=== PATIENT | male | born 1945 | race Caucasian/White ===

== ENCOUNTER 2022-08-27 18:54 | Emergency (ER) | payer MEDICARE, SELFPAY ==
--- NOTE | 2022-08-27 19:16 | ED.NAVMDI ---
HPI - Nausea/Vomiting/Diarrhea General Chief complaint: Nausea/Vomiting/Diarrhea Stated complaint: nausea,diarrhea Time Seen by Provider: 08/27/22 19:18 Source: patient and RN notes reviewed Mode of arrival: ambulatory Limitations: no limitations History of Present Illness HPI Narrative: 76-year-old male with a history of atrial fibrillation, hypertension, and hypothyroidism presented for complaint of nausea, vomiting, and diarrhea. Onset today at 6:00 a.m. He reports multiple liquid stools, last 1 approximately noon today. Has taken Imodium. He has had multiple emesis today, last episode approximately 20 minutes [employer]IST[employer]. Endorses bright red streaks in the emesis this morning, but has not noticed any more since. Denies coffee-ground emesis. Endorses persistent nausea and mild generalized abdominal pain. Denies chest pain, palpitations, fevers or chills. Denies changes to medication, and does not recall eating anything out of the ordinary. He has been traveling from [place] and has been eating at restaurants. He denies known sick contacts. Related Data Home Medications Medication Instructions Recorded Confirmed allopurinol 300 mg tablet 300 mg PO DAILY 08/27/22 08/27/22 levothyroxine 150 mcg tablet 150 mcg PO DAILY 08/27/22 08/27/22 lisinopril 10 mg tablet 10 mg PO DAILY 08/27/22 08/27/22 metoprolol succinate 25 mg capsule 25 mg PO BID 08/27/22 08/27/22 sprinkle, ext. release 24 hr Allergies Allergy/AdvReac Type Severity Reaction Status Date / Time aspirin Allergy Anaphylaxis Verified 08/27/22 19:28 latex Allergy Unknown Verified 08/27/22 19:28 sulfamethoxazole Allergy Unknown Verified 08/27/22 19:28 [From Bactrim] trimethoprim [From Bactrim] Allergy Unknown Verified 08/27/22 19:28 Review of Systems Review of Systems: CONSTITUTIONAL: Denies body aches, fever, chills ENT: Denies rhinorrhea, congestion CARDIOVASCULAR: Denies chest pain, palpitations, or edema. RESPIRATORY: Denies cough or dyspnea. GASTROINTESTINAL: Endorses mild abdominal pain, nausea, vomiting, diarrhea. Denies hematochezia, melena GENITOURINARY: Denies dysuria, hematuria, or CVA tenderness. SKIN: Denies rash, itching, or wounds. MUSCULOSKELETAL: Denies back pain, joint pain, or myalgia. NEUROLOGIC: Denies headache, numbness, tingling, or weakness. All systems reviewed & are unremarkable except as noted in HPI and below PMFSH Past Medical History Medical History (Updated 08/27/22 @ 19:38 by Marychuy Walter APRN) Atrial fibrillation Hypertension Hypothyroid Implantable loop recorder present Surgical History Surgical History H/O bilateral inguinal hernia repair H/O cardiac radiofrequency ablation H/O umbilical hernia repair Comments At time of signature, I have reviewed and agree with nursing past medical, surgical, social and family history unless otherwise noted. Please see nursing chart for further information. There is no relevant family history pertinent to the presenting complaint Exam Narrative: GENERAL: ill-appearing, in no acute distress. EYES: EOMI. Conjunctivae normal. ENT: Mucous membranes pink and moist. CHEST: No respiratory distress. Clear to auscultation. HEART: Regular rate and rhythm. No murmur appreciated. Normal peripheral pulses. ABDOMEN: abd soft, nondistended, hypoactive bowel sounds. Tender abdomen generalized. No guarding, rebound tenderness, or asymmetry EXTREMITIES: Normal range of motion. No edema. SKIN: Warm, dry, no rash. Capillary refill normal. Normal skin turgor. NEURO: No focal deficits. Alert and oriented x3. Course Course Emergency Course: Patient is aware of diagnosis, understands and agrees to treatment plan. Anticipatory guidance given. Portions of this record may have been created with voice recognition software Level of Care: Express Care Visit Vital Signs Vital signs: Vital Signs Temperature 98.1 F
[2022-08-27] MEDS: ONDANSETRON HCL ODT 4 MG TABLET SUBLINGUAL (19:40)
[2022-08-27 19:45] VITALS: BP 191/86; PULSE 100; RESP 20; TEMP 36.7; O2SAT 96
== END 2022-08-27 19:38 | disposition short-term general hospital (02) ==
PROVIDERS: Emergency Provider Nurse Practitioner Family
DX: R11.2 Nausea with vomiting, unspecified (principal); R19.7 Diarrhea, unspecified; Z20.822 Contact with and (suspected) exposure to COVID-19; I48.91 Unspecified atrial fibrillation; I10 Essential (primary) hypertension; E03.9 Hypothyroidism, unspecified
CPT/HCPCS: 87426; 87804; 99213; A9270; C9803; G0463

== ENCOUNTER 2022-08-27 19:57 | Emergency (ER) | payer MEDICARE, SELFPAY ==
[2022-08-27 21:00] VITALS: BP 157/89; PULSE 100; RESP 16; TEMP 36.9; O2SAT 99
[2022-08-27 22:51] VITALS: RESP 17
[2022-08-27 22:54] VITALS: BP 167/89; PULSE 85; RESP 15
[2022-08-27 22:55] VITALS: PULSE 87; RESP 22
--- NOTE | 2022-08-27 23:04 | ED.GENADULT ---
HPI - General Adult General Chief complaint: Nausea/Vomiting/Diarrhea Stated complaint: n/v/d Time Seen by Provider: 08/27/22 22:51 History of Present Illness HPI narrative: Patient 76-year-old gentleman who presents the emergency department with chief complaint of nausea vomiting and diarrhea patient states that he has prior history of dysrhythmia and has had an ablation as well as has an implantable loop recorder. The patient reports that he is traveling from [facility] and reports that started having diarrhea this morning and then started vomiting. Patient reports there was a little bit of blood streaks in the vomit after he had vomited multiple times patient states he has some mild cramping-like discomfort in his abdomen patient states he was concerned due to the vomiting that he would develop a dysrhythmia again. Patient reports he was seen in urgent care and given a Zofran ODT reports his nausea is improved but he still feels somewhat nauseated. The patient reports he has had prior hernia surgeries to his abdomen but still has his gallbladder and still has his appendix. Related Data Home Medications Medication Instructions Recorded Confirmed allopurinol 300 mg tablet 300 mg PO DAILY 08/27/22 08/27/22 levothyroxine 150 mcg tablet 150 mcg PO DAILY 08/27/22 08/27/22 lisinopril 10 mg tablet 10 mg PO DAILY 08/27/22 08/27/22 metoprolol succinate 25 mg capsule 25 mg PO BID 08/27/22 08/27/22 sprinkle, ext. release 24 hr Allergies Allergy/AdvReac Type Severity Reaction Status Date / Time aspirin Allergy Anaphylaxis Verified 08/27/22 19:28 latex Allergy Unknown Verified 08/27/22 19:28 sulfamethoxazole Allergy Unknown Verified 08/27/22 19:28 [From Bactrim] trimethoprim [From Bactrim] Allergy Unknown Verified 08/27/22 19:28 Review of Systems Review of Systems: A 10 system review of systems was completed on the patient and is negative except for what is stated in the HPI. Nursing and ancillary documentation was reviewed. [facility] Past Medical History Medical History Atrial fibrillation Hypertension Hypothyroid Implantable loop recorder present Surgical History Surgical History H/O bilateral inguinal hernia repair H/O cardiac radiofrequency ablation H/O umbilical hernia repair Exam Narrative: GENERAL: Well-appearing, well-nourished, and in no acute distress. HEAD: Normocephalic, atraumatic. EYES: PERRLA and EOMI. ENT: Nares clear, no rhinorrhea or epistaxis. Mucous membranes moist. NECK: Supple. CHEST: Clear to auscultation. No respiratory distress. HEART: Regular rate and rhythm. No murmur heard. Normal peripheral pulses. ABDOMEN: Soft, nontender, nondistended, normal active bowel sounds. EXTREMITIES: Normal range of motion. No edema. SKIN: Warm, dry, no rash. NEURO: No focal deficits. Alert and oriented x3. PSYCH: Normal mood and affect. Course Vital Signs Vital signs: Vital Signs Temperature 36.9 C 08/27/22 21:00 Pulse Rate 100 08/27/22 21:00 Respiratory Rate 16 08/27/22 21:00 Blood Pressure 157/89 H 08/27/22 21:00 Pulse Oximetry 99 08/27/22 21:00 Oxygen Delivery Room Air 08/27/22 21:00 Temperature 36.9 C 08/27/22 21:00 Pulse Rate 85 08/27/22 22:54 Respiratory Rate 15 08/27/22 22:54 Blood Pressure 167/89 H 08/27/22 22:54 Pulse Oximetry 99 08/27/22 21:00 Oxygen Delivery Room Air 08/27/22 21:00 Medical Decision Making [facility] Narrative Medical decision making narrative: Differential diagnosis includes gastroenteritis, viral syndrome, colitis diverticulitis. Patient on exam did not show tenderness in the abdomen. Laboratory studies were obtained which showed a white blood cell count 5.5 electrolytes are within normal limits urinalysis showed no evidence of UTI and negative for ketones. The patient received IV Zofran
[2022-08-27] MEDS: ONDANSETRON INJ 4 MG/2 ML VIAL IV PUSH (23:22)
[2022-08-27] MEDS: SODIUM CHLORIDE 0.9% IV 1,000 ML 999 ML IV CONT (23:28)
[2022-08-27 23:43] LABS: Basophils Percent Auto 0.2 % (0.2-1.2); Hematocrit 48.1 % (42.0-52.0); Hemoglobin 16.6 g/dL (14.0-18.0); Immature Granulocyte Absolute 0.04 K/mm3 (0.00-0.031); Immature Granulocyte Percent A 0.7 % (0-0.5); Lymphocytes Absolute Auto 0.64 K/mm3 (0.9-3.2); Lymphocytes Percent Auto 11.7 % (18.3-44.2); Mean Corpuscular HGB Conc 34.5 g/dl (32-36); Mean Corpuscular Hemoglobin 32.9 pg (26-34); Mean Corpuscular Volume 95.2 fl (80-100); Mean Platelet Volume 11.5 fl (7.4-10.4); Monocytes Absolute Auto 0.4 K/mm3 (0.1-0.6); Monocytes Percent Auto 7.3 % (2.6-8.5); Neutrophils Absolute Auto 4.4 K/mm3 (1.3-6.7); Neutrophils Percent Auto 80.1 % (45.5-73.1); Platelet Count Result 86 k/mm3 (150-375); Red Blood Count 5.05 M/mm3 (4.6-6.20); Red Cell Distribution Width 13.8 % (11.5-14.5); White Blood Count 5.5 K/mm3 (4.5-10.0)
[2022-08-27 23:57] VITALS: PULSE 79; RESP 18; O2SAT 98
[2022-08-27 23:59] LABS: Alanine Aminotransferase 31 U/L (6-50); Albumin Level 4.8 g/dL (3.5-5.1); Alkaline Phosphatase 65 U/L (38-126); Anion Gap 11 mmol/L (8-16); Aspartate Amino Transferase 30 U/L (17-59); Bilirubin,Total 1.1 mg/dL (0.2-1.3); Blood Urea Nitrogen 21 mg/dL (9-20); Calcium 9.3 mg/dL (8.4-10.2); Carbon Dioxide 26 mmol/L (22-30); Chloride 105 mmol/L (98-107); Estimated CRCL calculation 63 ml/min; Estimated Glomerular Filt Rate 59; Glucose 130 mg/dL (65-110); Lipase 25 U/L (23-300); Magnesium 1.8 mg/dL (1.6-2.3); Potassium 4.1 mmol/L (3.4-5.0); Sodium 142 mmol/L (137-145)
[2022-08-28] VITALS: PULSE 80; RESP 16; O2SAT 99
[2022-08-28 00:01] VITALS: BP 169/98; PULSE 82; RESP 15; O2SAT 100
[2022-08-28 00:21] LABS: Appearance Urine Clear (Clear); Bilirubin Urine Negative (Negative); Blood Urine Negative (Negative); Color Urine Yellow (Yellow); Glucose Urine UA Negative (Negative); Ketones Urine Negative (Negative); Leukocyte Esterase Ur Negative LEU/UL (Negative); Nitrate Urine Negative (Negative); Protein Urine Negative (Negative); Specific Grav Ur 1.016 (1.001-1.035); Urobilinogen Urine 0.2 mg/dL (<2.0)
[2022-08-28 00:34] VITALS: PULSE 82; RESP 18
[2022-08-28 00:51] LABS: Add Urine Microscopic? NO
[2022-08-28 01:13] VITALS: PULSE 83; RESP 18
[2022-08-28 01:17] VITALS: PULSE 86; RESP 18
== END 2022-08-28 01:22 | disposition home or self-care (01) ==
PROVIDERS: Emergency Provider Emergency Medicine
DX: K52.9 Noninfective gastroenteritis and colitis, unspecified (principal); I48.91 Unspecified atrial fibrillation; E03.9 Hypothyroidism, unspecified; I10 Essential (primary) hypertension
CPT/HCPCS: 36415; 80053; 81003; 83690; 83735; 85025; 85055; 87426; 87804; 96361; 96374; 99284; A9270; C9803; J2405; J7030